=== PATIENT | male | born 1990 | race Hispanic/Latino ===

== ENCOUNTER 2021-06-13 17:21 | Emergency (ER) | payer SELFPAY ==
[~2021-06-13] VITALS: Ht 172.7 cm; Wt 58.1 kg
[2021-06-13 21:15] LABS: BASOPHILS % (AUTO) 0.5 % (0.0-5.0); EOSINOPHILS % (AUTO) 1.3 % (0.0-8.0); HEMATOCRIT 48.2 % (42-54); LYMPHOCYTES % (AUTO) 22.6 % (21.0-51.0); MEAN CORPUSCULAR HEMOGLOBIN 29.5 pg (27.0-33.0); MEAN CORPUSCULAR VOLUME 86.8 fL (79-99); MONOCYTES % (AUTO) 14.3 % (3.0-13.0); NEUTROPHILS % (AUTO) 60.9 % (40.0-77.0); PLATELET COUNT (AUTO) 222 K/uL (130-400); RED BLOOD CELL COUNT(AUTO) 5.55 MIL/uL (4.50-6.20); RED CELL DISTRIBUTION WIDTH 12.3 % (11.0-15.5); WHITE BLOOD COUNT (AUTO) 9.8 K/uL (4.8-10.8)
[2021-06-13 21:30] LABS: AMPHET/METH SCREEN,URINE POSITIVE (NEGATIVE); BARBITURATE SCREEN, URINE NEGATIVE (NEGATIVE); BENZODIAZEPINES SCREEN,URINE NEGATIVE (NEGATIVE); CANNABINOID SCREEN,URINE POSITIVE (NEGATIVE); COCAINE SCREEN,URINE NEGATIVE (NEGATIVE); OPIATE SCREEN,URINE NEGATIVE (NEGATIVE); PHENCYCLIDINE SCREEN,URINE NEGATIVE (NEGATIVE)
[2021-06-13 21:31] LABS: CREATININE 0.9 mg/dL (0.5-1.5); POTASSIUM 3.5 mmol/L (3.5-5.1)
[2021-06-13 21:40] LABS: ALBUMIN 4.5 g/dL (3.5-5.0); BILIRUBIN,TOTAL 1.4 mg/dL (0.2-1.0); TOTAL PROTEIN, SERUM 7.5 g/dL (6.0-8.3)
[2021-06-13 22:34] VITALS: BP 105/74
== END 2021-06-13 22:35 | disposition home or self-care (01) ==
LOC: EDH 17:21
DX: F41.9 Anxiety disorder, unspecified (principal); R00.2 Palpitations; F12.10 Cannabis abuse, uncomplicated; F15.10 Other stimulant abuse, uncomplicated; F41.0 Panic disorder [episodic paroxysmal anxiety]
CPT/HCPCS: 36415; 71045; 80053; 80305; 84484; 85025; 93005

== ENCOUNTER 2021-11-26 10:18 | Emergency (ER) | payer OTHER ==
[~2021-11-26] VITALS: Ht 172.7 cm; Wt 68.0 kg
[2021-11-26 11:37] VITALS: BP 118/74
[2021-11-26] MEDS ORDERED: OSEL75 PO (12:12)
[2021-11-26] MEDS ORDERED: METH4TAB3 PO (12:12)
[2021-11-26] MEDS ORDERED: IBUP-2070 PO (12:12)
[2021-11-26] MEDS ORDERED: IBUPROFEN 600 MG TABLET PO ONE (12:30)
[2021-11-26] MEDS ORDERED: OSELTAMIVIR PHOSPHATE 75 MG CAP PO SCH (12:30)
== END 2021-11-26 12:26 | disposition home or self-care (01) ==
LOC: EDH 10:18
DX: J10.1 Influenza due to other identified influenza virus with other respiratory manifestations (principal); Z20.822 Contact with and (suspected) exposure to COVID-19; F41.9 Anxiety disorder, unspecified
CPT/HCPCS: 87635; 87804 ×2; 99283; C9803